=== PATIENT | female | born 2000 | race Caucasian/White ===

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

== ENCOUNTER 2021-03-07 09:44 | Emergency (ER) | payer OTHER ==
[~2021-03-07] VITALS: Ht 154.9 cm; Wt 65.8 kg
[2021-03-07 09:47] VITALS: BP 147/89
--- NOTE | 2021-03-07 11:52 | NUR ---
DRAKE FLETCHER. TERENCE WILLOUGHBY MADE AWARE.
== END 2021-03-07 11:52 | disposition left against medical advice (07) ==
LOC: MED 09:44
DX: M79.645 Pain in left finger(s) (principal)
CPT/HCPCS: 73140; 99283